=== PATIENT | male | born 2000 | race Caucasian/White ===

== ENCOUNTER 2024-10-04 21:10 | Observation (INO) ==
[2024-10-04] MEDS: ACETAMINOPHEN 500 MG TAB PO STA (21:58)
--- NOTE | 2024-10-04 22:07 | Emergency Department Note ---
Impression & Plan Hypoxia, Influenza A, Hyponatremia, Acute dehydration, Nausea vomiting and diarrhea ED Provider Note CHIEF COMPLAINT: Fever, chest pain, nausea HISTORY OF PRESENTING ILLNESS: This 23-year-old male patient presents to the emergency department with his brother for evaluation of a fever, nausea, vomiting, diarrhea, and chest pain. He started with a cough, runny nose, and bodyaches 4 days ago. He now has nausea, vomiting, and diarrhea. He states that he is now unable to keep food down. He developed chest discomfort from coughing so hard. He is also bringing up green sputum with his cough. He feels like he is very dehydrated at this time. Not having any abdominal pain. Fever 103.8 F max. Childhood immunizations are up to date. No known ill contacts. He has been taking Mucinex and Tylenol for his symptoms without much improvement. REVIEW OF SYSTEMS: See HPI for pertinent positives and pertinent negatives. ALLERGIES: NKDA MEDICATIONS: Propranolol, Bupropion, Buspirone, Seroquel, Ritazopine PAST MEDICAL HISTORY: Anxiety, Sleep disturbance, POTS PHYSICAL EXAM: Vital Signs: Vitals are noted on the nurse's note and reviewed by myself. GENERAL: The patient is ill-appearing, but non toxic in appearance and in no acute distress. SKIN: No obvious abnormal rashes or skin lesions. Capillary reflex less than 2 seconds. HEAD: Normocephalic, atraumatic. EARS: Bilateral external auditory canals clear without tragus tenderness. Bilateral tympanic membranes pearly alexandre without erythema or effusion. No mastoid tenderness bilaterally. EYES: Pupils equal round and reactive to light and accommodation. Conjunctivae without injection, sclerae without icterus. Extraocular movements intact. NOSE: Patent, turbinates inflamed with no discharge. No sinus tenderness. MOUTH: Mucous membranes moist. Airway patent, uvula midline. Pharynx is erythematous and edematous without exudate. Pharynx without postnasal drip. No evidence for peritonsillar abscess. NECK: Supple without nuchal rigidity. Bilateral anterior cervical lymphadenopathy. HEART: Regular rate and rhythm without murmurs gallops or rubs. LUNGS: Clear to auscultation bilaterally with wheezing throughout and possible rales, but no rhonchi. No accessory muscle use or retractions. The patient has pain with taking a deep breath. ABDOMEN: Positive bowel sounds x 4. Normal tympanic percussion. Soft, nontender to palpation. No masses or hepatosplenomegaly. No guarding, rigidity, or rebound tenderness. No CVA tenderness. No focal RLQ or LLQ tenderness. NEURO: Patient was alert and oriented. DIFFERENTIAL DIAGNOSIS: Differential diagnosis includes viral syndrome, RSV, Influenza, COVID, strep throat, pharyngitis/tonsillitis, mononucleosis, retropharyngeal abscess, peritonsillar abscess, otitis media, otitis externa, sinusitis, bronchitis, pneumonia, gastroenteritis, food borne illness, infections, appendicitis, diverticulitis, inflammatory bowel disease, obstruction, GI bleed, biliary pathology, volvulus, as well as other pathologies. ED COURSE AND MEDICAL DECISION MAKING: HISTORY FROM INDEPENDENT HISTORIAN: Additional history obtained from patient's brother. MEDICATIONS GIVEN: Tylenol 1000 mg p.o. A total of 3 L of normal saline solution bolus. Toradol 10 mg IV. Zofran 4 mg IV. DuoNeb treatment x 2. Rocephin 2 g IV. Zithromax 500 mg p.o. MONITOR: Continuous personnel monitor: Order was placed for continuous personnel monitor. Patient was placed on the personnel monitor and continuous pulse ox. Patient was noted to be in normal sinus rhythm at an initial rate of 94 bpm per my interpretation. EKG: EKG was interpreted by myself as sinus rhythm at 94 bpm with no acute ST or T wave changes. INTERPRETATION OF LABS: I interpreted the labs with full lab results as below in the lab section of this note. Laboratory results pertinent to the emergent complaint are discussed in the MDM section below. The patient was advised to follow up with their PCP and/or specialist(s) for further outpatient monitoring and management of any abnormal results. INTERPRETATION OF IMAGING: Imaging studies were interpreted by myself and read by radiology as per the imaging section of this note. The patient was advised to follow up with their PCP and/or specialist(s) for further outpatient management of any non-emergent abnormal findings. Chest x-ray showed no evidence for pneumonia or other acute cardiopulmonary etiology. CONSULTATIONS: On-call hospitalist CRITICAL CARE: I have personally spent 40 minutes of critical care time in the direct management of this patient. This includes bedside care, interpretation of diagnostic studies, and testing, discussion with consultants, patient, and family members, and other required patient management activities. This 40 minutes is in excess of all separately billable procedures. MDM SUMMARY: I examined the patient. The patient started with a cough, runny nose, body aches, and fever 4 days ago. He then developed nausea, vomiting, and diarrhea. He is not having trouble keeping any fluids down and feels dehydrated. He denies any abdominal pain and has no abdominal tenderness on exam. The patient has wheezing on exam with possible Rales. The patient also appears dehydrated on exam. An IV lock was placed and labs were drawn. The patient was initially given Tylenol 1000 mg p.o. prior to my evaluation. The patient was given a DuoNeb treatment with some improvement of his symptoms. He was given Toradol 10 mg IV and Zofran 4 mg IV with improvement of his nausea and discomfort. However, he was still ill-appearing. He was initially given 1 L normal saline solution bolus. However, after the patient's urine showed 3+ ketones, he was given an additional 2 L normal saline solution bolus for a total of 3 L. White blood cell count low at 3.74. Hemoglobin normal at 14.3. Platelet count normal at 173. Sodium low at 131 which is likely secondary to the significant dehydration. CMP otherwise without concerning abnormalities. Lactate and procalcitonin were normal. Magnesium normal. Lipase normal. High-sensitivity troponin normal. Urinalysis with the 3+ ketones, but no evidence for UTI. Group A strep PCR was negative. Respiratory BioFire was positive for influenza A. Blood cultures are pending. Chest x-ray showed no evidence for pneumonia or other acute cardiopulmonary etiology. The patient was unable to give a stool sample while in the ER. The patient became hypoxic into the mid to high 80s. He was given a second DuoNeb treatment, but he continued to be hypoxic that worsened with exertion. The patient was placed on 2 L of oxygen by nasal cannula. I had a meaningful discussion about this patient with Dr. Alba who agrees with my assessment and the treatment plan. Although the patient's chest x-ray was negative, the patient does appear to have Rales on exam, he is hypoxic, and there is concern for possible sepsis. Therefore, the patient was given Rocephin 2 g IV and Zithromax 500 mg p.o. after the blood cultures were obtained. We feel the patient requires admission for further evaluation and treatment. I spoke with the on-call hospitalist who agreed to admit the patient for further management. Please refer to their dictation for further details. The patient's care was transferred in stable condition. DIAGNOSIS: Hypoxia Dehydration Influenza A Nausea, vomiting, diarrhea Hyponatremia Past Med/Surg History Problem List (Updated 10/05/24 @ 06:07 by Radha Ferguson PA-C) Nausea vomiting and diarrhea (Acute) Acute dehydration (Acute) Acute diarrhea Nausea & vomiting Hyponatremia (Acute) Hypoxia (Acute) Influenza A (Acute) Social History Smoking Status: Current every day smoker Tobacco Type: E-cigarettes / Vaping Second Hand Exposure: No; Do You Dip or Chew Tobacco: No; Tobacco Cessation Education Requested by Patient: No Hx Alcohol Use: No Hx Substance Use: Yes Last Used Substance: Days (ago) Last Used Substance Other:: 09/26/24 Preferred Language: Luxembourgish Communication Ability: Effective 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 Required: No Beliefs That Will Affect Care: None Current Living Situation: Family Other Information That Helps Us Care for You: No Feels Safe at Home: Yes Safety Concerns: Feels Safe At This Time Allergies Allergies Allergy/AdvReac Type Severity Reaction Status Date / Time No Known Allergies Allergy Verified 10/04/24 22:11 Home Meds Home Medications Medication Instructions Recorded Confirmed bupropion HCl 100 mg tablet,12 hr 100 mg PO DAILY 10/05/24 10/05/24 sustained-release (Wellbutrin SR) buspirone 20 mg PO TID 10/05/24 10/05/24 propranolol 10 mg PO QID 10/05/24 10/05/24 propranolol 60 mg capsule,24 60 mg PO DAILY 10/05/24 10/05/24 hr,extended release quetiapine 25 mg tablet (Seroquel) 25 mg PO TID PRN Anxiety 10/05/24 10/05/24 Previous Rx's Medication Instructions Recorded prednisone 20 mg tablet 40 mg (2 x 20 mg) PO DAILY 3 days 10/05/24 #6 tabs Results & Data (ED) Vital Signs Vital Signs - 24 hr 10/04/24 21:15 10/04/24 21:53 10/04/24 21:54 Temperature 38 C H Temperature Source Oral Pulse Rate 99 H 96 H 97 H Pulse Rate from SpO2 Sensor Pulse Rhythm Regular Pulse Strength Normal Respiratory Rate 20 19 Respiratory Effort / Characteristics Non-Labored Spontaneous Respiratory Depth Normal Respiratory Pattern Regular Blood Pressure 108/69 91/71 L Blood Pressure Mean 82 77 Blood Pressure Position Sitting Pulse Oximetry 92 93 Oxygen Delivery Method Room Air Oxygen Flow Rate Sepsis Recent Fever Within 48 Hours Yes Sepsis New/Unexplained Change in Mental Status N/A Sepsis Action Taken by Nursing No Action Required 10/04/24 22:00 10/04/24 22:30 10/04/24 23:12 Temperature Temperature Source Pulse Rate 99 H 90 78 Pulse Rate from SpO2 Sensor Pulse Rhythm Pulse Strength Respiratory Rate 15 17 24 Respiratory Effort / Characteristics Respiratory Depth Respiratory Pattern Blood Pressure 132/75 116/73 108/61 Blood Pressure Mean 94 87 76 Blood Pressure Position Pulse Oximetry 92 98 91 Oxygen Delivery Method Oxygen Flow Rate Sepsis Recent Fever Within 48 Hours Sepsis New/Unexplained Change in Mental Status Sepsis Action Taken by Nursing 10/04/24 23:22 10/04/24 23:27 10/04/24 23:30 Temperature 37.8 C H Temperature Source Oral Pulse Rate 87 81 Pulse Rate from SpO2 Sensor 86 81 Pulse Rhythm Pulse Strength Respiratory Rate 17 15 Respiratory Effort / Characteristics Respiratory Depth Respiratory Pattern Blood Pressure 110/67 Blood Pressure Mean 81 Blood Pressure Position Pulse Oximetry 88 L 95 Oxygen Delivery Method Nasal Cannula Oxygen Flow Rate 2 Sepsis Recent Fever Within 48 Hours Sepsis New/Unexplained Change in Mental Status Sepsis Action Taken by Nursing 10/05/24 00:03 10/05/24 00:27 Temperature Temperature Source Pulse Rate 85 82 Pulse Rate from SpO2 Sensor Pulse Rhythm Pulse Strength Respiratory Rate 23 16 Respiratory Effort / Characteristics Respiratory Depth Respiratory Pattern Blood Pressure 100/62 109/68 Blood Pressure Mean 74 81 Blood Pressure Position Pulse Oximetry 91 93 Oxygen Delivery Method Oxygen Flow Rate Sepsis Recent Fever Within 48 Hours Sepsis New/Unexplained Change in Mental Status Sepsis Action Taken by Nursing Laboratory Data 10/05/24 06:42 10/05/24 06:42 Lab Results 10/04/24 10/04/24 10/04/24 Range/Units 21:25 22:07 22:23 WBC 3.74 L (4.8-10.8) K/ul RBC 4.46 L (4.70-6.10) M/uL Hgb 14.3 (14.0-18.0) g/dl Hct 39.8 L (42.0-52.0) % MCV 89.2 (80.0-100.0) fL MCH 32.1 (25.0-34.0) pg MCHC 35.9 (32.0-36.0) g/dL RDW Std Deviation 38.0 (36.4-46.3) fL RDW Coeff of Barb 11.8 (11.5-14.5) % Plt Count 173 (130-400) K/uL MPV 9.5 (9.4-12.4) fL Immature Gran % (Auto) 0.3 % Neut % (Auto) 67.1 % Lymph % (Auto) 17.9 % [place] % (Auto) 14.7 % Eos % (Auto) 0.0 % Baso % (Auto) 0.0 % Neut # (Auto) 2.51 (1.40-6.50) K/uL Lymph # (Auto) 0.67 L (1.20-3.40) K/uL [place] # (Auto) 0.55 (0.11-0.59) K/uL Eos # (Auto) 0.00 (0.00-0.50) K/uL Baso # (Auto) 0.00 (0.00-0.20) K/uL Immature Gran # (Auto) 0.01 (0.01-0.20) K/uL Sodium 131 L (136-145) mmol/L Potassium 4.0 (3.5-5.1) mmol/L Chloride 97 L (98-107) mmol/L Carbon Dioxide 25 (21-32) mmol/L Anion Gap 9 (3-11) BUN 11 (6-23) mg/dl Creatinine 0.92 (0.6-1.4) mg/dl Est Cr Clr Drug Dosing 138.1 ml/min eGFR 119.87 BUN/Creatinine Ratio 12.0 (10-20) Glucose 94 (70-99(Fasting)) mg/dl Lactate (0.4-2.0) mmol/L Calcium 8.6 (8.6-10.3) mg/dl Magnesium 1.9 (1.7-2.4) mg/dl Total Bilirubin 0.8 (0.2-1.0) mg/dl AST 39 (13-39) U/L ALT 16 (7-52) U/L Alkaline Phosphatase 51 (34-104) U/L Troponin I High Sens 5.0 (0-20) pg/ml Total Protein 6.6 (6.0-8.3) gm/dl Albumin 3.9 (3.4-5.0) gm/dl Globulin 2.7 (2.5-4.0) gm/dl Albumin/Globulin Ratio 1.4 (0.9-2) Lipase 32 (11-82) U/L Procalcitonin 0.19 (0-0.5) ng/ml Urine Color Urine Appearance (Clear) Urine pH (4.5-7.5) Ur Specific [place] (1.000-1.030) Urine Protein (Negative) Urine Glucose (UA) (Negative) Urine Ketones (Negative) Urine Blood (Negative) Urine Nitrite (Negative) Urine Bilirubin (Negative) Urine Urobilinogen (Negative) Ur Leukocyte Esterase (Negative) Urine WBC (Auto) (0-5) /hpf Urine RBC (Auto) (0-2) /hpf U Hyaline Cast (Auto) (0-2) /lpf U Epithel Cells (Auto) (0-2) /hpf Urine Bacteria (Auto) (None Seen) Adenovirus (PCR) Not Detected (NotDetected) B. pertussis DNA (PCR) Not Detected (NotDetected) B.parapertussis DNA PCR Not Detected (NotDetected) C. pneumoniae DNA (PCR) Not Detected (NotDetected) Coronavirus OC43 (PCR) Not Detected (NotDetected) Coronavirus HKU1 (PCR) Not Detected (NotDetected) Coronavirus 229E (PCR) Not Detected (NotDetected) SARS-CoV-2 (PCR) Not Detected (NotDetected) Coronavirus NL63 (PCR) Not Detected (NotDetected) Human Metapneumovir PCR Not Detected (NotDetected) Influenza A (H3) PCR DETECTED A (NotDetected) Influenza Type B (PCR) Not Detected (NotDetected) M. pneumoniae (PCR) Not Detected (NotDetected) Parainfluenza 1 (PCR) Not Detected (NotDetected) Parainfluenza 2 (PCR) Not Detected (NotDetected) Parainfluenza 3 (PCR) Not Detected (NotDetected) Parainfluenza 4 (PCR) Not Detected (NotDetected) RSV (PCR) Not Detected (NotDetected) Entero/Rhino (PCR) Not Detected (NotDetected) Group A Strep (PCR) NOT DETECTED (NotDetected) 10/04/24 10/05/24 Range/Units 22:53 00:15 WBC (4.8-10.8) K/ul RBC (4.70-6.10) M/uL Hgb (14.0-18.0) g/dl Hct (42.0-52.0) % MCV (80.0-100.0) fL MCH (25.0-34.0) pg MCHC (32.0-36.0) g/dL RDW Std Deviation (36.4-46.3) fL RDW Coeff of Barb (11.5-14.5) % Plt Count (130-400) K/uL MPV (9.4-12.4) fL Immature Gran % (Auto) % Neut % (Auto) % Lymph % (Auto) % [place] % (Auto) % Eos % (Auto) % Baso % (Auto) % Neut # (Auto) (1.40-6.50) K/uL Lymph # (Auto) (1.20-3.40) K/uL [place] # (Auto) (0.11-0.59) K/uL Eos # (Auto) (0.00-0.50) K/uL Baso # (Auto) (0.00-0.20) K/uL Immature Gran # (Auto) (0.01-0.20) K/uL Sodium (136-145) mmol/L Potassium (3.5-5.1) mmol/L Chloride (98-107) mmol/L Carbon Dioxide (21-32) mmol/L Anion Gap (3-11) BUN (6-23) mg/dl Creatinine (0.6-1.4) mg/dl Est Cr Clr Drug Dosing ml/min eGFR BUN/Creatinine Ratio (10-20) Glucose (70-99(Fasting)) mg/dl Lactate 0.8 (0.4-2.0) mmol/L Calcium (8.6-10.3) mg/dl Magnesium (1.7-2.4) mg/dl Total Bilirubin (0.2-1.0) mg/dl AST (13-39) U/L ALT (7-52) U/L Alkaline Phosphatase (34-104) U/L Troponin I High Sens (0-20) pg/ml Total Protein (6.0-8.3) gm/dl Albumin (3.4-5.0) gm/dl Globulin (2.5-4.0) gm/dl Albumin/Globulin Ratio (0.9-2) Lipase (11-82) U/L Procalcitonin (0-0.5) ng/ml Urine Color Yellow Urine Appearance Clear (Clear) Urine pH 6.0 (4.5-7.5) Ur Specific [place] 1.023 (1.000-1.030) Urine Protein 1+ H (Negative) Urine Glucose (UA) Negative (Negative) Urine Ketones 3+ H (Negative) Urine Blood Negative (Negative) Urine Nitrite Negative (Negative) Urine Bilirubin Negative (Negative) Urine Urobilinogen Negative (Negative) Ur Leukocyte Esterase Negative (Negative) Urine WBC (Auto) 0-5 (0-5) /hpf Urine RBC (Auto) 3-5 H (0-2) /hpf U Hyaline Cast (Auto) 0-2 (0-2) /lpf U Epithel Cells (Auto) 0-2 (0-2) /hpf Urine Bacteria (Auto) None Seen (None Seen) Adenovirus (PCR) (NotDetected) B. pertussis DNA (PCR) (NotDetected) B.parapertussis DNA PCR (NotDetected) C. pneumoniae DNA (PCR) (NotDetected) Coronavirus OC43 (PCR) (NotDetected) Coronavirus HKU1 (PCR) (NotDetected) Coronavirus 229E (PCR) (NotDetected) SARS-CoV-2 (PCR) (NotDetected) Coronavirus NL63 (PCR) (NotDetected) Human Metapneumovir PCR (NotDetected) Influenza A (H3) PCR (NotDetected) Influenza Type B (PCR) (NotDetected) M. pneumoniae (PCR) (NotDetected) Parainfluenza 1 (PCR) (NotDetected) Parainfluenza 2 (PCR) (NotDetected) Parainfluenza 3 (PCR) (NotDetected) Parainfluenza 4 (PCR) (NotDetected) RSV (PCR) (NotDetected) Entero/Rhino (PCR) (NotDetected) Group A Strep (PCR) (NotDetected) Administered Medications Discontinued Medications Acetaminophen (Acetaminophen 500 Mg Tab) 1,000 mg PO NOW STA Stop: 10/04/24 21:37 Last Admin: 10/04/24 21:58 Dose: 1,000 mg Documented By: KARINA Albuterol (Albut/Ipratrop 3mg/0.5mg Neb 3 Ml Vial) 3 ml NEB NOW STA; Protocol Stop: 10/04/24 22:16 Last Admin: 10/04/24 22:23 Dose: 3 ml Documented By: KARINA Albuterol (Albut/Ipratrop 3mg/0.5mg Neb 3 Ml Vial) 3 ml NEB NOW STA; Protocol Stop: 10/04/24 23:46 Last Admin: 10/04/24 23:48 Dose: 3 ml Documented By: KARINA Azithromycin (Azithromycin 250 Mg Tab) 500 mg PO NOW ONE Stop: 10/04/24 23:54 Last Admin: 10/05/24 00:19 Dose: 500 mg Documented By: KARINA Benzonatate (Benzonatate 100 Mg Capsule) 100 mg PO TID EVA Stop: 11/04/24 08:59 Last Admin: 10/05/24 13:05 Dose: 100 mg Documented By: Admin: 10/05/24 07:45 Dose: 100 mg Documented By: ALICJA Bupropion HCl (Bupropion Sr 100 Mg Tabcr) 100 mg PO DAILY [facility] Stop: 11/04/24 08:59 Last Admin: 10/05/24 07:45 Dose: 100 mg Documented By: ALICJA Buspirone HCl (Buspirone 5 Mg Tab) 20 mg PO TID EVA Stop: 11/04/24 08:59 Last Admin: 10/05/24 13:05 Dose: 20 mg Documented By: Admin: 10/05/24 07:45 Dose: 20 mg Documented By: ALICJA Sodium Chloride (Nss) 1,000 mls @ 999 mls/hr IV .Q1H1M ONE Stop: 10/04/24 23:15 Last Infusion: 10/04/24 23:42 Dose: Infused Documented By: Admin: 10/04/24 22:22 Dose: 999 mls/hr Documented By: KARINA Sodium Chloride (Nss) 1,000 mls @ 999 mls/hr IV .Q1H1M ONE Stop: 10/05/24 00:15 Last Infusion: 10/05/24 00:30 Dose: Infused Documented By: Admin: 10/04/24 23:21 Dose: 999 mls/hr Documented By: KARINA Ceftriaxone Sodium (Rocephin) 2,000 mg in 50 mls @ 100 mls/hr IV NOW STA Stop: 10/05/24 00:22 Last Infusion: 10/05/24 01:14 Dose: Infused Documented By: Admin: 10/05/24 00:20 Dose: 100 mls/hr Documented By: KARINA Sodium Chloride (Nss) 1,000 mls @ 999 mls/hr IV .Q1H1M ONE Stop: 10/05/24 00:53 Last Infusion: 10/05/24 01:14 Dose: Infused Documented By: Admin: 10/05/24 00:18 Dose: 999 mls/hr Documented By: KARINA Methylprednisolone 40 mg/ (Syringe) 0.64 mls @ 1.5 mls/min IV BID EVA Stop: 11/04/24 08:59 Last Admin: 10/05/24 07:46 Dose: 1.5 mls/min Documented By: ALICJA Ketorolac Tromethamine (Ketorolac Tromethamine 15 Mg/Ml Vial) 10 mg IV NOW ONE Stop: 10/04/24 22:16 Last Admin: 10/04/24 22:23 Dose: 10 mg Documented By: KARINA Melatonin (Melatonin 3 Mg Tab) 3 mg PO HS PRN PRN Reason: Insomnia Stop: 11/04/24 01:43 Last Admin: 10/05/24 02:32 Dose: 3 mg Documented By: MICHAEL Methylprednisolone (Methylprednisolone 125 Mg/2 Ml Vial) 125 mg IV NOW STA Stop: 10/05/24 00:33 Last Admin: 10/05/24 00:41 Dose: 125 mg Documented By: KARINA Ondansetron HCl (Ondansetron Inj 2 Mg/Ml 2 Ml Vial) 4 mg IV NOW STA Stop: 10/04/24 22:16 Last Admin: 10/04/24 22:23 Dose: 4 mg Documented By: KARINA Propranolol HCl (Propranolol Hcl 60 Mg [place]) 60 mg PO DAILY EVA Stop: 11/04/24 08:59 Last Admin: 10/05/24 07:48 Dose: 60 mg Documented By: [facility] Propranolol HCl (Propranolol Hcl 10 Mg Tab) 10 mg PO QID EVA; Protocol Stop: 11/04/24 16:59 Last Admin: 10/05/24 16:29 Dose: 10 mg Documented By: [facility] Quetiapine Fumarate (Quetiapine Fumarate 25 Mg Tablet) 25 mg PO TID PRN PRN Reason: Anxiety Stop: 11/04/24 01:43 Last Admin: 10/05/24 13:05 Dose: 25 mg Documented By: Admin: 10/05/24 02:31 Dose: 25 mg Documented By: ED Quetiapine Fumarate (Quetiapine Fumarate 25 Mg Tablet) 25 mg PO TID EVA Stop: 11/04/24 13:59 Last Admin: 10/05/24 13:56 Dose: Not Given Documented By: [facility] Imaging Data Radiologist's Impression: Chest X-Ray 10/04/24 21:22 Exam(s): XR CXR 1 VIEW EXAM: XR Chest, 1 View CLINICAL HISTORY: Reason for exam: cough. TECHNIQUE: Frontal view of the chest. COMPARISON: No relevant prior studies available. FINDINGS: Lungs: No consolidation. Pleural space: No pleural effusion is seen. No pneumothorax. Heart: Heart is normal in size.. Mediastinum: Unremarkable. Bones/joints: Unremarkable. IMPRESSION: No acute pulmonary disease. Electronically signed by: Lamin Jeffers MD 10/04/24 23:56 PM Discharge Plan Visit Data Chief Complaint: Flu Like Symptoms Stated Complaint: FEVER, CHEST PAIN, NAUSEA ED Provider: Yonny Alba ED Midlevel Provider: Radha Ferguson Discharge Problem: Hypoxia, Influenza A, Hyponatremia, Acute dehydration, Nausea vomiting and diarrhea Patient Disposition: Admitted As Inpatient Condition: Good Discharge Instructions Interventions: ED Discharge Assessment Last Done: 10/05/24 01:16
[2024-10-04] MEDS: SODIUM CHLORIDE 0.9% 1,000 ML IV ONE ×2 (22:22→23:21)
[2024-10-04] MEDS: KETOROLAC TROMETHAMINE 15 MG/ML VIAL IV ONE (22:23)
[2024-10-04] MEDS: ALBUT/IPRATROP 3MG/0.5MG NEB 3 ML VIAL NEB STA ×2 (22:23→23:48)
[2024-10-04] MEDS: ONDANSETRON INJ 2 MG/ML 2 ML VIAL IV STA (22:23)
[2024-10-04 22:27] LABS: Adenovirus PCR Not Detected (NotDetected); Bordetella parapertussis PCR Not Detected (NotDetected); Bordetella pertussis PCR Not Detected (NotDetected); Chlamydia pneumoniae PCR Not Detected (NotDetected); Coronavirus 229E PCR Not Detected (NotDetected); Coronavirus CoV-2 (COVID19)PCR Not Detected (NotDetected); Coronavirus HKU1 PCR Not Detected (NotDetected); Coronavirus NL63 PCR Not Detected (NotDetected); Coronavirus OC43PCR Not Detected (NotDetected); Human Metapneumovirus PCR Not Detected (NotDetected); Influenza A (H3) PCR DETECTED (NotDetected); Influenza B PCR Not Detected (NotDetected); Mycoplasma pneumoniae PCR Not Detected (NotDetected); Parainfluenza Virus 1 PCR Not Detected (NotDetected); Parainfluenza Virus 2 PCR Not Detected (NotDetected); Parainfluenza Virus 3 PCR Not Detected (NotDetected); Parainfluenza Virus 4 PCR Not Detected (NotDetected); Respiratory Syncytial VirusPCR Not Detected (NotDetected); Rhinovirus/Enterovirus PCR Not Detected (NotDetected)
[2024-10-04 22:37] LABS: Hematocrit (blood only) 39.8 % (42.0-52.0); Hemoglobin 14.3 g/dl (14.0-18.0); Immature Granulocytes # (auto) 0.01 K/uL (0.01-0.20); Immature Granulocytes % (auto) 0.3 %; Lymphocytes # (auto) 0.67 K/uL (1.20-3.40); Lymphocytes % (auto) 17.9 %; Mean Corpuscular Hemoglobin 32.1 pg (25.0-34.0); Mean Corpuscular Hgb Conc 35.9 g/dL (32.0-36.0); Mean Corpuscular Volume 89.2 fL (80.0-100.0); Mean Platelet Volume 9.5 fL (9.4-12.4); Monocytes # (auto) 0.55 K/uL (0.11-0.59); Monocytes % (auto) 14.7 %; Neutrophils # (auto) 2.51 K/uL (1.40-6.50); Neutrophils % (auto) 67.1 %; Platelet Count 173 K/uL (130-400); RDW Coefficient of Variation 11.8 % (11.5-14.5); Red Blood Count 4.46 M/uL (4.70-6.10); White Blood Count 3.74 K/ul (4.8-10.8)
[2024-10-04 22:49] LABS: Albumin Globulin Ratio 1.4 (0.9-2); Albumin Level 3.9 gm/dl (3.4-5.0); Bilirubin,Total 0.8 mg/dl (0.2-1.0); Calcium 8.6 mg/dl (8.6-10.3); Creatinine Clr Calc Pharmacy 138.1 ml/min; Globulin 2.7 gm/dl (2.5-4.0); Magnesium 1.9 mg/dl (1.7-2.4); Total Protein 6.6 gm/dl (6.0-8.3)
[2024-10-04 23:14] LABS: Appearance Urine Clear (Clear); Bacteria Urine Automated None Seen (None Seen); Bilirubin Urine Negative (Negative); Blood Urine Negative (Negative); Cast Urine Automated 0-2 /lpf (0-2); Color Urine Yellow; Epithelial Cell Urine Auto 0-2 /hpf (0-2); Glucose Urine UA Negative (Negative); Ketones Urine 3+ (Negative); Leukocyte Esterase Urine Negative (Negative); Nitrite Urine Negative (Negative); Protein Urine 1+ (Negative); Specific Gravity Urine 1.023 (1.000-1.030); Urobilinogen Urine Negative (Negative); WBC Urine Automated 0-5 /hpf (0-5)
--- NOTE | 2024-10-04 23:57 | XRay Report ---
Exam(s): XR CXR 1 VIEW EXAM: XR Chest, 1 View CLINICAL HISTORY: Reason for exam: cough. TECHNIQUE: Frontal view of the chest. COMPARISON: No relevant prior studies available. FINDINGS: Lungs: No consolidation. Pleural space: No pleural effusion is seen. No pneumothorax. Heart: Heart is normal in size.. Mediastinum: Unremarkable. Bones/joints: Unremarkable. IMPRESSION: No acute pulmonary disease. Electronically signed by: Lamin Jeffers MD 10/04/24 23:56 PM
[2024-10-05] MEDS: SODIUM CHLORIDE 0.9% 1,000 ML IV ONE (00:18)
[2024-10-05] MEDS: AZITHROMYCIN 250 MG TAB PO ONE (00:19)
[2024-10-05] MEDS: cefTRIAXone SODIUM 2,000 MG/50 ML BAG IV STA (00:20)
--- NOTE | 2024-10-05 00:35 | History & Physical Report ---
Date of Service October 05, 2024 Assessment & Plan (1) Hypoxia: (2) Influenza A: (3) Hyponatremia: (4) Nausea & vomiting: (5) Acute diarrhea: Plan Patient is a 23-year-old male with a past medical history of anxiety and depression. He is a [employer] student who presents today due to flulike symptoms for the past 4 days. He is being admitted due to hypoxia; 88% RA in ED. Ordered IV solu-Medrol on admission, anticipate improvement in symptoms overnight. Planning for hopeful discharge 10/06. #Influenza A/hypoxia/n/v/d outside of Tamiflu window; symptoms for 4 days 88% RA, requiring 2L O2 at 93% on admission ED: 3L NSS, 2G Rocephin, 1000 Mg Tylenol, 10 Mg Toradol, Zofran, DuoNeb X2, azithromycin 500 mg Defer further ABX use as CXR negative for pneumonia - blood cultures pending Ordered IV Solu-Medrol 125 Mg, 40 mg IV for AM ordered Wean oxygen as tolerated Incentive spirometry Supportive care - Tylenol as needed, Zofran as needed, DuoNeb as needed, Tessalon Perle diet as clears, advance as tolerated #hyponatremia suspect secondary to nausea, vomiting, diarrhea, decreased oral intake NA 131 on admission 3L NSS given in ED Repeat BMP with a.m. labs, anticipate to improve with rehydration Chronic stable diagnoses: anxiet/depression - continue Wellbutrin, BuSpar, propranolol, Seroquel as needed VTE ppx: SCDs - low risk Diet: clears - advance as tolerated Dispo: med surg with continuous pulse oximetry - anticipate discharge early a.m. 10/06 with steroid taper p.o. Admission and Anticipated Discharge Date Admission Date: 10/05/24 History of Present Illness Chief Complaint: flu like symptoms Primary Care Provider: [facility] Patient is a 23-year-old male with a past medical history of anxiety and depression. He is a [employer] student who presents today due to flulike symptoms for the past 4 days. He is being admitted due to hypoxia; 88% RA in ED. Patient seen at bedside with his brother present. He stated that approximately 4 days ago he began with cough with dark green sputum production, rhinorrhea, kennedy dy aches. He then began with nausea, vomiting, and diarrhea on Thursday. He has been able to keep down a few crackers over the past few days and liquids. He last vomited earlier today. He also noted a fever on Thursday of 103.8. He has been taking Tylenol regularly which has been suppressing his fever. He also endorses dyspnea at rest along with chest pain when having a deep cough. He has has had no sick contacts that he knows of, however is a college student. He stated he is feeling better with the fluids and DuoNeb treatment given in the ED. Patient denies abdominal pain. He stated he did have asthma as a child but does not use an inhaler, denies past history of CVA, DM, previous VTE. He resides in [place]. He does endorse nicotine use with a vape, denies alcohol use. Does not use oxygen at baseline. Did take his home medications this morning that include propranolol, BuSpar, Seroquel, mirtazapine. He stated he did miss 2 doses of BuSpar recently. He wishes to be full code at this time. Spoke with patient's father, Nile, on the phone and updated him - [phone]. He will be up and available all night. Please update patient's mother, Jennifer, tomorrow morning [phone]. Allergies Allergy/AdvReac Type Severity Reaction Status Date / Time No Known Allergies Allergy Verified 10/04/24 22:11 Home Medications Medication Instructions Recorded Confirmed Type bupropion HCl 100 mg tablet,12 hr 100 mg PO DAILY 10/05/24 10/05/24 History sustained-release (Wellbutrin SR) buspirone 20 mg PO TID 10/05/24 10/05/24 History propranolol 10 mg PO QID 10/05/24 10/05/24 History propranolol 60 mg capsule,24 60 mg PO DAILY 10/05/24 10/05/24 History hr,extended release quetiapine 25 mg tablet (Seroquel) 25 mg PO TID PRN Anxiety 10/05/24 10/05/24 History Past Med/Surg History Problem List (Updated 10/05/24 @ 00:55 by Kiana Lynn PA-C) Acute diarrhea Nausea & vomiting Hyponatremia Hypoxia Influenza A Social History Smoking Status: Never smoker Preferred Language: Pashto Feels Safe at Home: Yes Review of Systems Review of Systems: see HPI Physical Exam Physical Exam: The patient is awake, alert and oriented 3, well developed and well nourished, normocephalic and atraumatic, in no acute distress. Non-toxic appearing. HEENT- EOMI, mucous membranes moist. Hearing grossly intact. Heart-normal S1 and S2. No murmurs, rubs or gallops. Lungs-clear bilaterally, no respiratory distress, no accessory muscle use. Abdomen-normal bowel sounds and soft. No ascites noted. Non-tender. Extremities- no clubbing, cyanosis, or edema. Rheumatologic-normal range of motion. Psychiatric-normal affect. Results & Data Results & Data Vital Signs (Past 12 Hours) Vital Signs Temp Pulse Resp BP Pulse Ox O2 Del Method O2 Flow Rate 10/04/24 23:30 81 15 95 Nasal Cannula 2 10/04/24 23:27 87 17 110/67 88 L 10/04/24 23:22 37.8 C H 10/04/24 23:12 78 24 108/61 91 10/04/24 22:30 90 17 116/73 98 10/04/24 22:00 99 H 15 132/75 92 10/04/24 21:54 97 H 19 91/71 L 93 10/04/24 21:53 96 H 10/04/24 21:15 38 C H 99 H 20 108/69 92 Room Air Laboratory Results reviewed CBC, CMP, UA, bio fire Diagnostic Findings reviewed CXR Medications Administered ED: 3L NSS, 2G Rocephin, 1000 Mg Tylenol, 10 Mg Toradol, Zofran, DuoNeb X2, azithromycin 500 mg ECG Additional Comments: ordered Code Status & VTE Plan Code Status full VTE Prophylaxis Plan VTE Prophylaxis will be ordered: Yes Supervising Physician Co-Signing Physician Notes Attending addendum: I have physically seen this patient, have supervised the KURT's activities, and agree with the H&P unless as otherwise noted. Assessment and Plan: Patient is a 23-year-old male [employer] student, with past medical history significant for anxiety and depression, who presented to the emergency department with complaint of 4 days of flulike symptoms, generalized muscle aches, nausea, vomiting and diarrhea, fatigue, and cough productive of green sputum. Found in emergency department to be positive for influenza A H3 strain, and referred for evaluation for admission. #Influenza A H3 infection with hypoxia- As noted on respiratory BioFire, with other viruses being negative Patient is outside window for Tamiflu treatment Pulse ox 88% on room air, improving to 93% on 2 L nasal cannula oxygen Status post 3 L normal saline fluid bolus from the ED, 2 g ceftriaxone IV, Tylenol 1 g p.o., Toradol 10 mg IV, Zofran 4 mg IV, DuoNeb treatments x 2, and azithromycin 500 mg p.o. Hold on additional antibiotics at this time Give Solu-Medrol 125 mg IV, then 40 mg IV every morning Oxygen titration goal is 93-94% Acetaminophen 650 mg by mouth every 6 hours as needed for mild pain or fever Zofran 4 mg IV every 6 hours as needed DuoNebs every 2 hours as needed Tessalon Perles 100 mg p.o. 3 times daily as needed Droplet precautions #Hyponatremia- Sodium 131 on admission. Likely secondary to decreased oral intake Has received 3 L normal saline bolus in the ED Repeat laboratories in the a.m. #Ongoing medical issues: Anxiety-depression continue Wellbutrin, BuSpar, propranolol Continue Seroquel as needed PG Care Time/CCT Total # of Minutes Spent Total Time Spent with Patient: Total time spent is greater than 50% in coordination of care (as documented) at patient's floor/unit and/or counseling patient: Coding Level of Care Code 63971 INT INP/OBS CARE 3/75MIN Diagnoses Hypoxia R09.02 Influenza A J10.1 Hyponatremia E87.1 Nausea & vomiting R11.2 Acute diarrhea R19.7
[2024-10-05] MEDS: methylPREDNISolone 125 MG/2 ML VIAL IV STA (00:41)
[2024-10-05] MEDS ORDERED: ONDANSETRON INJ 2 MG/ML 2 ML VIAL IV PRN (01:44)
[2024-10-05] MEDS ORDERED: ACETAMINOPHEN 325 MG TAB PO PRN (01:44)
[2024-10-05] MEDS ORDERED: ALBUT/IPRATROP 3MG/0.5MG NEB 3 ML VIAL NEB PRN (01:44)
[2024-10-05] MEDS: QUEtiapine FUMARATE 25 MG TABLET PO PRN (02:31)
[2024-10-05] MEDS: MELATONIN 3 MG TAB PO PRN (02:32)
--- NOTE | 2024-10-05 06:34 | Electrocardiogram Report ---
Test Reason : Blood Pressure : */* mmHG Vent. Rate : 94 BPM Atrial Rate : 94 BPM P-R Int : 110 ms QRS Dur : 94 ms QT Int : 332 ms P-R-T Axes : 49 66 62 degrees QTcB Int : 415 ms Sinus rhythm with short OK Otherwise normal ECG No previous ECGs available Confirmed by David Johnson ([id number]) on 10/05/2024 6:33:47 AM Referred By: REFERRED SELF Confirmed By: David Johnson
[2024-10-05 06:58] LABS: Hematocrit (blood only) 38.4 % (42.0-52.0); Hemoglobin 13.5 g/dl (14.0-18.0); Immature Granulocytes # (auto) 0.01 K/uL (0.01-0.20); Immature Granulocytes % (auto) 0.4 %; Lymphocytes # (auto) 0.39 K/uL (1.20-3.40); Lymphocytes % (auto) 16.3 %; Mean Corpuscular Hemoglobin 32.1 pg (25.0-34.0); Mean Corpuscular Hgb Conc 35.2 g/dL (32.0-36.0); Mean Corpuscular Volume 91.4 fL (80.0-100.0); Mean Platelet Volume 9.4 fL (9.4-12.4); Monocytes % (auto) 8.4 %; Neutrophils # (auto) 1.79 K/uL (1.40-6.50); Neutrophils % (auto) 74.9 %; Platelet Count 142 K/uL (130-400); RDW Coefficient of Variation 11.9 % (11.5-14.5); White Blood Count 2.39 K/ul (4.8-10.8)
[2024-10-05 07:19] LABS: BUN Creatinine Ratio 15.2 (10-20); Calcium 8.4 mg/dl (8.6-10.3); Creatinine Clr Calc Pharmacy 160.9 ml/min; Magnesium 2.1 mg/dl (1.7-2.4); Potassium 4.8 mmol/L (3.5-5.1)
--- NOTE | 2024-10-05 07:29 | Hospitalist Progress Note ---
Date of Service October 05, 2024 Assessment & Plan (1) Influenza A: Plan Del is 23-year-old male with a past medical history of anxiety and depression. Endorses flulike symptoms for the past 4 days. #Influenza A *improving, Sats on and off Outside of Tamiflu window. On ED, 88% RA, admitted with 2L O2 IV Solu-Medrol/ Incentive spirometry/ Supportive care Tylenol PRN, Zofran PRN, DuoNeb PRN, Tessalon Perles Tried weaning off: Did not tolerate ambulation. #Hyponatremia *Improved NA 131 on admission 3L NSS given in ED Encourage Oral intake Chronic stable diagnoses: anxiet/depression - continue Wellbutrin, BuSpar, propranolol, Seroquel as needed DVT ppx: Low risk Admission and Anticipated Discharge Date Admission Date: October 05, 2024 Subjective This AM Del feels better than yesterday. Tried to wean him off from Oxygen during round, did not tolerate on walking around room. No chest pain/ SOB/ fever. Last fever last night. Review of Systems Review of Systems: As per HPI Physical Exam Physical Exam: Constitutional: Well appearing, No acute distress HEENT: Atraumatic, Normocephalic, No conjunctival injection CVS: S1 S2 no murmur, Regular Rhythm, no LE edema Respiratory: BL equal air entry with NVBS. No rhonchi, wheezes, or crackles. No increased work of breathing Skin: Warm, Dry, No rashes Neuro: Alert, Oriented to TPP, No Focal deficit Psych: Mood and Affect congruent, Cooperative on exam Results & Data Results & Data Vital Signs (Past 12 Hours) Vital Signs Temp Pulse Resp BP BP Pulse Ox O2 Del Method 10/05/24 05:20 36.4 C L 16 95 Nasal Cannula 10/05/24 01:50 Nasal Cannula 10/05/24 01:50 36.7 C 18 107/71 94 Nasal Cannula 10/05/24 01:30 36.7 C 18 107/91 94 Nasal Cannula 10/05/24 01:06 81 19 98/57 L 89 L 10/05/24 00:27 82 16 109/68 93 10/05/24 00:03 85 23 100/62 91 10/04/24 23:30 81 15 95 Nasal Cannula 10/04/24 23:27 87 17 110/67 88 L 10/04/24 23:22 37.8 C H 10/04/24 23:12 78 24 108/61 91 10/04/24 22:30 90 17 116/73 98 10/04/24 22:00 99 H 15 132/75 92 10/04/24 21:54 97 H 19 91/71 L 93 10/04/24 21:53 96 H 10/04/24 21:15 38 C H 99 H 20 108/69 92 Room Air O2 Flow Rate 10/05/24 05:20 2 10/05/24 01:50 2 10/05/24 01:50 2 10/05/24 01:30 2 10/05/24 01:06 10/05/24 00:27 10/05/24 00:03 10/04/24 23:30 2 10/04/24 23:27 10/04/24 23:22 10/04/24 23:12 10/04/24 22:30 10/04/24 22:00 10/04/24 21:54 10/04/24 21:53 10/04/24 21:15 Resident Activity Tracking Resident Involvement: Resident Care Provided Care Provided: Adult Hospital Medicine
[2024-10-05] MEDS: busPIRone 5 MG TAB PO SCH (07:45)
[2024-10-05] MEDS: BENZONATATE 100 MG CAPSULE PO SCH (07:45)
[2024-10-05] MEDS: buPROPion SR 100 MG TABCR PO SCH (07:45)
[2024-10-05] MEDS: methylPREDNISolone 40 MG in SYRINGE 0 ML IV SCH (07:46)
[2024-10-05] MEDS: PROPRANOLOL HCL 60 MG LA CAP PO SCH (07:48)
[2024-10-05] MEDS ORDERED: methylPREDNISolone 125 MG/2 ML VIAL IV SCH (09:00)
[2024-10-05] MEDS: QUEtiapine FUMARATE 25 MG TABLET PO SCH (13:56)
[2024-10-05 15:25] VITALS: RESP 18; TEMP 97.9; O2SAT 95
[2024-10-05 16:28] VITALS: BP 103/62; PULSE 84
[2024-10-05] MEDS: PROPRANOLOL HCL 10 MG TAB PO SCH (16:29)
--- NOTE | 2024-10-05 17:17 | Discharge Summary ---
Date of Service October 05, 2024 Admission HPI Per Admitting Provider Patient is a 23-year-old male with a past medical history of anxiety and depression. He is a [employer] student who presents today due to flulike symptoms for the past 4 days. He is being admitted due to hypoxia; 88% RA in ED. Patient seen at bedside with his brother present. He stated that approximately 4 days ago he began with cough with dark green sputum production, rhinorrhea, body aches. He then began with nausea, vomiting, and diarrhea on Thursday. He has been able to keep down a few crackers over the past few days and liquids. He last vomited earlier today. He also noted a fever on Thursday of 103.8. He has been taking Tylenol regularly which has been suppressing his fever. He also endorses dyspnea at rest along with chest pain when having a deep cough. He has has had no sick contacts that he knows of, however is a college student. He stated he is feeling better with the fluids and DuoNeb treatment given in the ED. Patient denies abdominal pain. He stated he did have asthma as a child but does not use an inhaler, denies past history of CVA, DM, previous VTE. He resides in [place]. He does endorse nicotine use with a vape, denies alcohol use. Does not use oxygen at baseline. Did take his home medications this morning that include propranolol, BuSpar, Seroquel, mirtazapine. He stated he did miss 2 doses of BuSpar recently. He wishes to be full code at this time. Spoke with patient's father, Nile, on the phone and updated him - [phone]. He will be up and available all night. Please update patient's mother, Jennifer, tomorrow morning [phone]. Admission Exam Per Admitting Provider The patient is awake, alert and oriented 3, well developed and well nourished, normocephalic and atraumatic, in no acute distress. Non-toxic appearing. HEENT- EOMI, mucous membranes moist. Hearing grossly intact. Heart-normal S1 and S2. No murmurs, rubs or gallops. Lungs-clear bilaterally, no respiratory distress, no accessory muscle use. Abdomen-normal bowel sounds and soft. No ascites noted. Non-tender. Extremities- no clubbing, cyanosis, or edema. Rheumatologic-normal range of motion. Psychiatric-normal affect. Principal Diagnosis Influenza A Discharge Exam Constitutional: Well appearing, No acute distress HEENT: Atraumatic, Normocephalic, No conjunctival injection CVS: S1 S2 no murmur, Regular Rhythm, no LE edema Respiratory: BL equal air entry with NVBS. No rhonchi, wheezes, or crackles. No increased work of breathing Skin: Warm, Dry, No rashes Neuro: Alert, Oriented to TPP, No Focal deficit Psych: Mood and Affect congruent, Cooperative on exam Discharge Data Allergies Allergy/AdvReac Type Severity Reaction Status Date / Time No Known Allergies Allergy Verified 10/04/24 22:11 Consultations 10/05/24 00:15 ED Decision to Admit Stat Hospital Course (1) Influenza A: Everett Mathis is 23-year-old male with a past medical history of anxiety and depression. Was admitted for Influenza A. #Influenza A *improved Sats, weaned off O2 Outside of Tamiflu window. On ED, 88% RA, admitted with 2L O2 IV Solu-Medrol/ Incentive spirometry/ Supportive care DC with same #Hyponatremia *Improved Encourage oral intake Chronic stable diagnoses: anxiet/depression - continue Wellbutrin, BuSpar, propranolol, Seroquel as needed DC to home. Total Time Total Time Spent Total Time Spent (In Minutes): See attending's attestation Discharge Plan Discharge Items Patient Disposition: Home - Self-Care Reason For Visit: HYPOXIA, INFLUENZA A Discharge Diagnosis: Influenza A Condition on Discharge: Good Activity: Resume your previous activity Non-emergency contact: Primary Care Provider Call non-emergency contact if: your symptoms worsen Follow-up/Referrals: Juanito Painting DO [Physician] - (pt requesting cardiology referral; hx of pes excavatum surgery) [facility] [Primary Care Provider] - Catia Singh MD [Resident] - (establish care; f/u PNA) Diet: Regular Addtl Attending Provider Instructions: You were admitted to the hospital for Flu. You were treated with steroids and supportive care. The flu is an infection that can cause fever, cough, nausea, vomiting, diarrhea, body aches, and other symptoms. The most common type of flu is the "seasonal" flu. There are different forms of seasonal flu, for example, "type A" and "type B." The medical term for the flu is "influenza". You were tested positive for Influenza A. Your blood oxygen level was low when you presented to ED and it gradually improved on admission. We did not give you antiviral medication as you were out of window for indication. You were already sick for 4 days. Most people get better on their own, without any lasting problems. But some people need to go to the hospital because of the flu. And some people even from it. This is because the flu can cause a serious lung infection called pneumonia. Hence we admitted you for observation. Now you did fine on admission is reassuring for you not having serious complications. To help decrease your risk of serious lung infections/diseases, it is recommended for you to stop vaping. A discharge summary will be sent to your primary care physician to ensure continuity of care. Please bring this discharge summary with you to your next office appointment so that your provider can review it at that time. Medications: Your medication list has been reviewed and reconciled upon discharge to ensure accuracy and continuity of care. An updated list of all your medications is included with your hospital discharge paperwork. Please review this list closely and make note of any changes to your medications. - You have been prescribed a steroid to help decrease inflammation in your lungs. You should take 2 tablets daily for 3 days. Follow up appointments: - Make a follow up appointment with your PCP within the next week or 2 after discharge. You may establish care with the [facility] resident clinic if you wish- Dr. Singh's name has been attached to your discharge paperwork. You may also call [phone] to get set up with an appointment. - Dr. Painting is a local group supervisor yard associated with [facility]; his office number is [phone] if you would like to call to set up an appointment. - Keep all of your follow up appointments as already scheduled. If you cannot make an appointment, notify your provider. CONTACT YOUR PRIMARY CARE PROVIDER if you experience any of the following: - Difficulty following your treatment plan - Difficulty taking any of your medications CALL 911 OR GO TO THE EMERGENCY DEPARTMENT if you experience any of the following: Have trouble breathing or are short of breath or your oxygen level is consistently below 88% Get suddenly dizzy Feel confused Have severe vomiting Pending Studies at Discharge: No Stand-Alone Forms: My [facility], Smoking Cessation Medications and DC Order Prescriptions: New prednisone 20 mg tablet 40 mg PO DAILY 3 Days Qty: 6 0RF Rx Instructions: Take 2 tablets in the morning daily for 3 days Continued quetiapine [Seroquel] 25 mg Tablet 25 mg PO TID PRN (Reason: Anxiety) propranolol 60 mg Capsule,Extended Release 24 Hr 60 mg PO DAILY bupropion HCl [Wellbutrin SR] 100 mg Tablet Sustained-Release 12 Hr 100 mg PO DAILY buspirone 20 mg tablet 20 mg PO TID propranolol 10 mg tablet 10 mg PO QID Discharge Orders: Discharge Order (Routine); Ordered 10/05/24 Ordered By: Tania Han/Other Patient Handouts: COVID 19 Flu Differences, Dehydration, E Cigarettes and Vaping, ED Dehydration (Adult), ED Influenza (Adult) Admission Data Admit Date/Time: 10/05/24 00:48 Attending Provider: Gallo Brandon Admit Provider: Kiana Lynn Primary Care Provider: [place] Other Providers: Patrice Welch Other Interventions: Discharge Summary Assessment (RN) Last Done: 10/05/24 17:22 Supervising Physician Co-Signing Physician Notes I personally examined the patient and verified all vasquez points of history and exam, discussed case, and agree with decision making with Dr Singh Feeling better and feels up to going home. Still feels ill, but less weak and dizzy not short of breath, feels like he would do okay. Vitals noted, in general he is awake and alert pleasant no distress. Lungs are overall clear maybe a few scattered rhonchi no rales no wheezes no accessory muscle use. He is in the low 90s on room air at rest, whenever I have him walk around the room he drops to [id number], although no appearance of dyspnea. Later whenever our team circled back in the late afternoon (I saw him in the mid morning) they repeated pulse ox with ambulation and he was above 90 . Influenza/acute hypoxic respiratory failure present on admissionfortunately improving. Now safe/stable for home. Otherwise as above. Resident Activity Tracking Resident Involvement: Resident Care Provided Care Provided: Adult [facility] Medicine
--- NOTE | 2024-10-05 18:18 | Billing Data ---
Date of Service October 05, 2024 Coding Level of Care Code 41908 IN/OBS DISCH 30 MIN/LESS
== END 2024-10-05 17:45 | disposition home or self-care (01) | DRG 194 ==
LOC: ED 21:10 → 3E 10-05 00:48 → INTOOBSV 10-05 00:48 → SUATTDRO 10-05 00:48 → 3E 10-05 01:16